=== PATIENT | female | born 1995 | race Caucasian/White ===

== ENCOUNTER 2024-05-06 09:39 | Emergency (ER) | payer SELFPAY ==
[2024-05-06] MEDS ORDERED: methylPREDNISolone Sod Succ/PF 125 MG/2 ML VIAL ONE (10:07)
[2024-05-06] MEDS ORDERED: diphenhydrAMINE 50 MG/ML VIAL ONE (10:07)
== END 2024-05-06 11:44 | disposition home or self-care (01) ==
LOC: BURERS 09:39
DX: L50.9 Urticaria, unspecified (principal); F17.290 Nicotine dependence, other tobacco product, uncomplicated
CPT/HCPCS: 96374; 96375; J1200; J2919